=== PATIENT | male | born 1955 | race Caucasian/White ===

== ENCOUNTER 2023-10-04 09:23 | Outpatient (OUT) | payer MEDICARE, SELFPAY ==
[2023-10-04 14:05] LABS: Prostate Specific Antigen Dx <0.13 ng/mL (<=4.00)
== END 2023-10-04 09:24 | disposition home or self-care (01) ==
LOC: LAB 09:30
PROVIDERS: Visit Provider Urology
DX: Z85.46 Personal history of malignant neoplasm of prostate (principal)
CPT/HCPCS: 36415; 84153